=== PATIENT | male | born 1950 | race Hispanic/Latino ===

== ENCOUNTER 2020-03-17 00:30 | Inpatient (IN) | payer OTHER ==
--- OUTSIDE RECORDS SUMMARY | 2020-03-17 00:44 | XMS REPORT ---
:[address] [facility] t Address [address] [place] [address] Dr. Robin [address] [place] [id number] Care Team Providers Name Role Phone Unavailable Unavailable Unavailable Problems This patient has no known problems. Allergies, Adverse Reactions, Alerts This patient has no known allergies or adverse reactions. Medications This patient has no known medications.
[2020-03-17 01:55] VITALS: BMI 23.7
[2020-03-17] MEDS ORDERED: ONDANSETRON 4 MG/2 ML VIAL IV PRN (02:17)
[2020-03-17] MEDS ORDERED: CEFOXITIN SODIUM 1 GM/VIAL IVPB ONE (02:17)
[2020-03-17] MEDS ORDERED: CEFOXITIN SODIUM 1 GM/VIAL ONE (02:53)
[2020-03-17] MEDS ORDERED: NA CHLORIDE 0.9% 50 ML ONE (03:05)
[2020-03-17] MEDS: NA CHLORIDE 0.9% 1,000 ML IV SCH ×2 (04:51→16:16)
[2020-03-17] MEDS: MORPHINE 2 MG/ML SYR IV PRN ×2 (04:54→06:55)
[2020-03-17] MEDS ORDERED: D50W 25 GM/50 ML SYRINGE/VIAL IV PRN (07:33)
[2020-03-17] MEDS ORDERED: GLUCAGON 1 MG/VIAL IM PRN (07:33)
[2020-03-17] MEDS: INSULIN -REGULAR HUMAN 50 UNIT/0.5 ML ML SQ SCH ×3 (08:00→18:00)
[2020-03-17 08:16] LABS: Absolute Lymphocytes (CBC) 1.3 K/uL (0.7-4.9); Basophils % 0.5 % (0-1.3); Hematocrit 39.7 % (39.6-49.0); Lymphocytes % 16.5 % (15.3-44.8); MPV 8.2 fL (7.6-11.3); RBC Red Blood Cell Count 4.65 M/uL (4.33-5.43)
[2020-03-17 08:27] LABS: Albumin 3.9 g/dL (3.4-5.0); Bilirubin Total 0.8 mg/dL (0.2-1.0); Magnesium 2.5 mg/dL (1.8-2.4); Potassium 4.1 mmol/L (3.5-5.1); Protein, Total 7.7 g/dL (6.4-8.2)
[2020-03-17] MEDS ORDERED: PNEUMOCOCCAL VACCINE 0.5 ML IMVAC ONE (09:00)
--- NOTE | 2020-03-17 14:05 | RAD REPORT ---
EXAM DESCRIPTION: RAD - Abdomen W Erect - 03/17/2020 1:55 pm CLINICAL HISTORY: Abdomen pain. FINDINGS: Several loops of small bowel are mildly to moderately dilated. The air within the colon is diminished. This likely indicates a small bowel obstruction. Free air is not seen beneath the diaphragm
[2020-03-17] MEDS ORDERED: ENOXAPARIN 40 MG/0.4 ML SQ ONE (18:56)
[2020-03-17] MEDS ORDERED: PANTOPRAZOLE 40 MG INJ IVP ONE (18:58)
[2020-03-17] MEDS ORDERED: SODIUM CHLORIDE 0.9% 10ML INJ IV PRN (18:58)
[2020-03-17] MEDS: METOPROLOL TAR 25 MG TAB PO SCH (21:13)
--- NOTE | 2020-03-18 01:46 | HP ---
Date of Admission: 03/17/2020 History Of Present Illness: This is the case of a 69-year-old patient, comes to us actually to [facility] last overnight with a small bowel obstruction. We are in national emergency. They did no t have any surgeons available or anyway we had to take care of him so they asked for transfer, they c alled me. We accepted transfer to this institution. He came this morning. He denies any trauma. D enies eating anything out of the usual. He eats lot of salad. He had a colonoscopy done about a yea r ago and he say it was negative. He just developed this a distention of the abdomen and abdominal p ain and came to the ER. He denies any dysuria, hematuria, hematochezia, or melena. Denies any recen t traveling out of the country. Denies any family member sick at home. Denies any shortness of jonathan th. Allergies: NONE. Past Medical History: Hypertension, diabetes, pancreatitis non-insulin dependent diabetes. Past Surgical History: Cholecystectomy. Medications: Include Crestor and glyburide. Social History: He does not smoke. He does not drink alcohol. Family History: Noncontributory. Review of Systems: Ten points otherwise unremarkable. Physical Examination: General: Patient is awake and alert. HEENT: Pupils are equal and reactive, anicteric. Neck: Supple. Chest: Clear. Abdomen: Softly distended. No rebound. Mild generalized tenderness. Rectal and genitalia: Deferred. Extremities: Good capillary refill. Neurologic: Cranial nerves 2 through 12 grossly within normal limits. Laboratory Data: Blood work shows WBC count 7.7 with hemoglobin of 13.3, platelets of 284. Potassiu m is 4.1, creatinine is 0.9. We have a CAT scan done at [facility]. It was read by the [facility] doctors w ith small bowel obstruction. We do not have it in this institution. We did an x-ray once again, and the x-ray still showing small bowel obstruction. Assessment: A 69-year-old patient with small bowel obstruction, of unknown etiology. Patient will c ontinue n.p.o., ambulation. Dr. Swift was consulted on the case, this is the primary doctor to help u s with diabetes and hypertension control. We are going to order a small bowel series tomorrow. Cont inue bowel rest. RICARDA/PATRICK Voice ID: [id number]
[2020-03-18] MEDS: NA CHLORIDE 0.9% 1,000 ML IV SCH (04:00)
[2020-03-18] MEDS: INSULIN -REGULAR HUMAN 50 UNIT/0.5 ML ML SQ SCH ×4 (06:00→18:00)
--- NOTE | 2020-03-18 07:07 | CON ---
Date of Consultation: 03/17/2020 Reason For Consultation: Medical management. History Of Present Illness: This is a 69-year-old very pleasant male patient who sees me for his med ical management, was doing fine in his usual state of health until yesterday morning he started to kirk ve some upper abdominal pain associated with some nausea, vomiting. He denies any constipation or di arrhea. He felt like having some chills with these complaints. His last bowel movement was at 8:00 p.m. yesterday. His abdominal pain got worse yesterday, progressed, and had some associated bloating and he was belching a lot of gas. He did not report any abdominal distention. Late yesterday eveni ng or during nighttime, he went to [facility] with this worsening abdominal pain where he was evaluated, diagnosed as having small-bowel obstruction, and he was transferred to our [facility] under care of Dr. Brantley, general surgeon, and I was requested to provide medical consultati on for medical management. He denies any blood in stool, denies any hematemesis. Allergies: NO KNOWN ALLERGIES. Medications: List reviewed. Review of Systems: GI: As mentioned above. Constitutional: As mentioned above. All other systems reviewed and negative. Past Medical History: Significant for diabetes mellitus type 2 with neuropathy, hypertension, mixed hyperlipidemia, diverticulosis, benign prostatic hypertrophy, insomnia. Past Surgical History: Cataract surgery, cholecystectomy. Family History: Father of [place]. Mother , details unknown. Brother had stomach cancer and si ster with hypertension. Social History: Negative for smoking. Use of alcohol occasional. Physical Examination: Vital Signs: Temperature 97.7, pulse 81, respiratory rate 18, blood pressure 140/70, oxygen saturati on 97%. Height 5 feet 10 inches, weight 165 pounds. General: Awake, alert, oriented, not in distress. HEENT: Head atraumatic, normocephalic. Conjunctivae nonerythematous. Sclerae white. Mouth, no thr ush or edema noted. Ears/Nose, no mass, lesion, discharge noted. Neck: Supple. No JVD, lymph nodes, bruit, thyromegaly noted. Lungs: Bilateral good equal air entry. Clear to auscultation. No rhonchi. No rales. Heart: Normal heart sounds, no murmur or gallop. Abdomen: Soft, not distended. No guarding, rigidity. No rebound tenderness. No hepatosplenomegaly. No bruit. Bowel sounds normoactive. Patient has very mild tenderness in mid upper abdomen. Extremities: No leg edema. No calf tenderness. Skin: No rash, ulcer, cellulitis. Lymphatics: No lymph node enlargement in neck, supraclavicular, infraclavicular region. Neuro: No focal neurological deficit. Chest: Unremarkable. External Genitalia: Deferred. Rectal: Deferred. Laboratory Data: Procalcitonin less than 0.05. Lactic acid 0.9. Sodium 138, potassium 4.1, chlorid e 105, bicarb 25, BUN 14, creatinine 0.91, glucose 133. Liver function tests unremarkable. White co unt 7.7, hemoglobin 13.3, platelets 284. Impression: 1.Type 2 diabetes mellitus with diabetic neuropathy. 2.Mixed hyperlipidemia. 3.Hypertension. 4.Diverticulosis. 5.Benign prostatic hypertrophy. 6.Insomnia. 7.Small-bowel obstruction. Plan: Patient was admitted to the hospital with small-bowel obstruction and medically he is very sta ble at this point. His home medication list reviewed. We will continue his essential medication at this point. For diabetes, we will be manage it with sliding scale insulin and to continue the oral d iabetic medication at this point while he is n.p.o. IV fluid and antibiotic order is in place. DVT prophylaxis was ordered. Details and plan of treatment discussed with the patient and I will see him tomorrow for followup. Thank you very much for allowing me to participate in this patient's care. OSWALDO/MODL Voice ID: [id number] Report ID: [id number]
[2020-03-18] MEDS: METOPROLOL TAR 25 MG TAB PO SCH ×2 (09:00→21:04)
[2020-03-18] MEDS: D5 0.9 NS 1,000 ML IV SCH ×2 (11:18→21:20)
[2020-03-18] MEDS: PANTOPRAZOLE 40 MG INJ IVP SCH (11:18)
--- NOTE | 2020-03-18 11:26 | RAD REPORT ---
EXAM DESCRIPTION: RAD - Small Bowel Series - 03/18/2020 11:01 am CLINICAL HISTORY: SBO Abdominal pain COMPARISON: Abdomen Exam Complete dated 01/01/2018; Abdomen W Erect dated 03/17/2020 FINDINGS: Biomechanical Engineer film shows a nonspecific bowel gas pattern. No obstruction or free air. No suspiciou s calcifications. Cholecystectomy clips. Gastric size and mucosal fold pattern are normal. No delay in transit of contrast into the small vu l. Small bowel is normal in diameter with no mucosal fold thickening. No intrinsic or extrinsic mass identifiable. Terminal ileum has normal appearance. Transit time to the colon is normal. No fluoroscopy was performed. Total images acquired: 15 IMPRESSION: No evidence of mechanical small-bowel obstruction seen.
--- NOTE | 2020-03-18 16:47 | P.DS ---
Admission Date: 03/17/20 Discharge Date: 03/18/20 Disposition: ROUTINE DISCHARGE Discharge Condition: GOOD Hospital Course: unremarkable, passinf flatus and BM Vital Signs/Physical Exam: Temp Pulse Resp BP Pulse Ox 97.3 F 56 16 132/68 98 03/18/20 12:00 03/18/20 12:00 03/18/20 12:00 03/18/20 12:00 03/18/20 12:00 General: Alert, In no apparent distress, Oriented x3, Cooperative HEENT: Normocephalic, PERRLA Neck: Supple Respiratory: Normal air movement Cardiovascular: No edema, Normal pulses Gastrointestinal: Normal bowel sounds, Soft and benign, No tenderness, No rebound, No guarding Musculoskeletal: No erythema, No tenderness, No warmth Integumentary: No rashes, No breakdown Neurological: Normal speech, Normal strength at 5/5 x4 extr, Normal tone Lymphatics: No axilla or inguinal lymphadenopathy External genitalia: Deferred Rectal: Deferred Laboratory Data at Discharge: WBC 7.7 K/uL (4.3-10.9) 03/17/20 07:54 Hgb 13.3 g/dL (13.6-17.9) L 03/17/20 07:54 Hct 39.7 % (39.6-49.0) 03/17/20 07:54 Plt Count 284 K/uL (152-406) 03/17/20 07:54 Sodium 138 mmol/L (136-145) 03/17/20 07:54 Potassium 4.1 mmol/L (3.5-5.1) 03/17/20 07:54 BUN 14 mg/dL (7-18) 03/17/20 07:54 Creatinine 0.91 mg/dL (0.55-1.3) 03/17/20 07:54 Glucose 133 mg/dL (74-106) H 03/17/20 07:54 Magnesium 2.5 mg/dL (1.8-2.4) H 03/17/20 07:54 Total Bilirubin 0.8 mg/dL (0.2-1.0) 03/17/20 07:54 AST 17 U/L (15-37) 03/17/20 07:54 ALT 25 U/L (12-78) 03/17/20 07:54 Alkaline Phosphatase 72 U/L (45-117) 03/17/20 07:54 Imagings Data: SBS neg Home Medications: Aspirin Chewable [Aspirin Chewable*] 81 mg PO BEDTIME 03/17/20 Cyanocobalamin [Vitamin B-12] 1,000 mcg PO DAILY 03/17/20 Empagliflozin/Metformin HCl [Synjardy Xr 25-1,000 mg Tablet] 1 each PO DAILY 03/17/20 Losartan Potassium [Cozaar] 50 mg PO BID 03/17/20 Metoprolol Tartrate [Lopressor] 25 mg PO BID 03/17/20 Pantoprazole [Protonix Tab] 40 mg PO Q48H 03/17/20 Rosuvastatin [Crestor] 10 mg PO BEDTIME 03/17/20 Sitagliptin Phosphate [Januvia] 100 mg PO BEDTIME 03/17/20 Patient Discharge Instructions: soft diet. Discharge if he tolerated diet. Diet: ADA Followup: Alan Brantley MD [ACTIVE - CAN ADMIT] - 1 Week
[2020-03-18] MEDS ORDERED: ENOXAPARIN 40 MG/0.4 ML SQ SCH (17:00)
[2020-03-18 21:43] VITALS: O2SAT 99
[2020-03-19] MEDS: INSULIN -REGULAR HUMAN 50 UNIT/0.5 ML ML SQ SCH
[2020-03-19 01:17] VITALS: BP 138/77; TEMP 98
--- NOTE | 2020-03-19 02:52 | PN ---
Date of Progress Note: 03/18/2020 Subjective: The patient was seen this morning for followup. He was ambulating in the room when I sa w him. Denied any complaints. Abdominal pain has resolved. No nausea or vomiting. Had 1 bowel mov ement yesterday. Objective: Vital Signs: Reviewed. HEENT: Unremarkable. Lungs: Clear to auscultation. Heart: Sounds normal. Abdomen: Soft. Bowel sounds normal. No guarding, rigidity, tenderness, or distention. Extremities: No leg edema. Impression: 1.Diabetes mellitus. 2.Hypertension. 3.Small-bowel obstruction. Plan: The patient's fingerstick blood sugar readings and vital signs reviewed. We will continue cur rent IV fluid. Dr. Brantley has ordered small-bowel series and then he will decide further plan of t reatment depending on the test results. Medically, patient is stable. OSWALDO/MODL Voice ID: [id number] Report ID: [id number]
[2020-03-19] MEDS: D5 0.9 NS 1,000 ML IV SCH (04:14)
[2020-03-19] MEDS ORDERED: GLUCAGON 1 MG/VIAL IM PRN (05:06)
[2020-03-19] MEDS ORDERED: D50W 25 GM/50 ML SYRINGE/VIAL IV PRN (05:06)
[2020-03-19] MEDS ORDERED: INSULIN -REGULAR HUMAN 50 UNIT/0.5 ML ML SQ SCH (07:30)
[2020-03-19] MEDS: METOPROLOL TAR 25 MG TAB PO SCH (10:15)
[2020-03-19] MEDS: PANTOPRAZOLE 40 MG INJ IVP SCH (10:15)
--- NOTE | 2020-03-19 14:07 | PN ---
Date of Progress Note: 03/19/2020 Subjective: The patient was seen this morning for followup. Dr. Brantley had discharged him yesterd ay, but after he wrote the discharge order, patient did not feel comfortable after evening meal as he had some bloating type of sensation. He did not go home last night. This morning when I saw him, nitin lan did not have any abdominal pain. He had a bowel movement early this morning as well as last night as he reports. No nausea, no vomiting. Has some bloating with burping of gas, but no abdominal dist ention or abdominal pain. He tolerated diet very well this morning. Objective: Vital Signs: Reviewed. HEENT: Examination unremarkable. Lungs: Clear to auscultation. Cardiovascular: Heart sounds normal. Abdomen: Soft. Bowel sounds normal. No guarding, rigidity, t enderness, distention. Extremities: No leg edema. Impression: 1.Hypertension. 2.Diabetes mellitus. 3.Small bowel obstruction. Plan: Patient is medically stable and he will be going home today. He will follow up with Dr. Tracie almazan next week and he was instructed that if he has any worsening of symptoms, he should contact Dr. Diane alvarenga. Otherwise, he will follow up with him next week. I have advised him to eat a low-fiber t until he sees Dr. Brantley and then he can slowly advance his diet. OSWALDO/MODL Voice ID: [id number] Report ID: [id number]
== END 2020-03-19 11:28 | disposition home or self-care (01) | DRG 390 ==
LOC: 2ND 00:30
PROVIDERS: ADMIT Surgery; ATTEND Surgery
DX: K56.609 Unspecified intestinal obstruction, unspecified as to partial versus complete obstruction (principal); G47.00 Insomnia, unspecified; I10 Essential (primary) hypertension; E11.40 Type 2 diabetes mellitus with diabetic neuropathy, unspecified; E78.2 Mixed hyperlipidemia; K57.90 Diverticulosis of intestine, part unspecified, without perforation or abscess without bleeding; N40.0 Benign prostatic hyperplasia without lower urinary tract symptoms; Z79.82 Long term (current) use of aspirin; Z79.84 Long term (current) use of oral hypoglycemic drugs; Z90.49 Acquired absence of other specified parts of digestive tract; Z79.899 Other long term (current) drug therapy
CPT/HCPCS: 36415; 74019; 74250; 80053; 82947; 83605; 83735; 84145; 85025; C9113; J0694; J1650; J2270; J7030; J7042

== ENCOUNTER 2020-10-26 08:08 | Day surgery (SDC) | payer OTHER ==
[2020-10-25 13:33] LABS: Absolute Lymphocytes (CBC) 1.1 K/uL (0.7-4.9); Basophils % 0.6 % (0-1.3); Hematocrit 24.8 % (39.6-49.0); Lymphocytes % 25.7 % (15.3-44.8); MPV 8.2 fL (7.6-11.3); RBC Red Blood Cell Count 3.27 M/uL (4.33-5.43)
[2020-10-25 13:45] LABS: Ferritin 2.6 ng/mL (26-388)
--- OUTSIDE RECORDS SUMMARY | 2020-10-26 08:18 | XMS REPORT | Continuity of Care Document ---
:1950 Author Organization [facility] t Address [address] [place] [address] Dr. Robin [address] [place] [id number] Care Team Providers Name Role Phone Unavailable Unavailable Unavailable Problems This patient has no known problems. Allergies, Adverse Reactions, Alerts This patient has no known allergies or adverse reactions. Medications This patient has no known medications. Procedures This patient has no known procedures. Results This patient has no known results.
[2020-10-26] MEDS ORDERED: ACETAMINOPHEN 500 MG TAB ONE (08:36)
[2020-10-26] MEDS ORDERED: NA CHLORIDE 0.9% 250 ML ONE ×2 (08:37→11:21)
[2020-10-26] MEDS ORDERED: DIPHENHYDRAMINE 25 MG TAB/CAP ONE (08:37)
[2020-10-26 10:25] VITALS: BMI 23.9
[2020-10-26 16:17] VITALS: BP 138/64; TEMP 97.9; O2SAT 100
[2020-10-26 16:43] LABS: Hematocrit 27.6 % (39.6-49.0)
== END 2020-10-26 17:25 | disposition home or self-care (01) ==
LOC: DS 08:08
PROVIDERS: ATTEND Internal Medicine
DX: D50.0 Iron deficiency anemia secondary to blood loss (chronic) (principal)
CPT/HCPCS: 85025; 36415 ×2; 86900; 86850; 86901; 85018; 85014; 82728; 83540; 84466; 36430; P9016 ×2; J7050 ×2

== ENCOUNTER 2021-03-21 18:18 | Inpatient (IN) | payer OTHER ==
--- OUTSIDE RECORDS SUMMARY | 2021-03-21 18:21 | XMS REPORT | Continuity of Care Document ---
:1950 Author Organization [facility] t Address [address] [place] [address] Dr. Robin [address] [place] [address] Care Team Providers Name Role Phone Unavailable Unavailable Unavailable Problems This patient has no known problems. Allergies, Adverse Reactions, Alerts This patient has no known allergies or adverse reactions. Medications This patient has no known medications. Procedures This patient has no known procedures. Results This patient has no known results.
[2021-03-21] MEDS ORDERED: GLUCAGON 1 MG/VIAL IM PRN (21:46)
[2021-03-21] MEDS ORDERED: D50W 25 GM/50 ML SYRINGE IV PRN (21:46)
[2021-03-21] MEDS ORDERED: MORPHINE 2 MG/ML SYR IV PRN (21:48)
[2021-03-21] MEDS ORDERED: ONDANSETRON 4 MG/2 ML VIAL IV PRN (21:48)
[2021-03-21] MEDS ORDERED: D5 0.9 NS 1,000 ML IV SCH (22:00)
--- NOTE | 2021-03-21 22:09 | ER ---
Nurse's Notes [facility] Name: Alonso Stover Age: 70 yrs Sex: Male : 1950 Arrival Date: 03/21/2021 Time: 18:21 Bed External Waiting Private MD: Morris Swift C Diagnosis: Unspecified abdominal pain Presentation: 03/21 18:40 Chief complaint: Patient states: Upper abd pain started last night. Direct admit Dr. alex Swift. + nausea, no fever. Coronavirus screen: Client denies travel out of the [place] in the last 14 days. At this time, the client does not indicate any symptoms associated with coronavirus-19. Ebola Screen: Patient denies travel to an Ebola-affected area in the 21 days before illness onset. Initial Sepsis Screen: Does the patient meet any 2 criteria? HR > 90 bpm. No. Patient's initial sepsis screen is negative. Does the patient have a suspected source of infection? Yes: Acute abdominal pain. Risk Assessment: Do you want to hurt yourself or someone else? Patient reports no desire to harm self or others. Onset of symptoms was March 20, 2021. 18:40 Method Of Arrival: Ambulatory ll1 18:40 Acuity: KAVEH 3 ll1 Historical: - Allergies: 18:43 No Known Allergies; ll1 - PMHx: 18:43 Pancreatitis; blockage; Diabetes - NIDDM; Hypertension; High Cholesterol; ll1 - PSHx: 18:43 Cholecystectomy; ll1 - Immunization history:: Flu vaccine is up to date. - Social history:: Smoking status: Patient denies any tobacco usage or history of. Vital Signs: 18:40 BP 157 / 93; Pulse 92; Resp 17; Temp 97.6; Pulse Ox 99% ; Weight 75.3 kg; Height 5 ft. ll1 10 in. (177.80 cm); Pain 6/10; 18:40 Body Mass Index 23.82 (75.30 kg, 177.80 cm) ll1 ED Course: 18:21 Patient arrived in ED. am2 18:21 Morris Swift MD is Private Physician. am2 18:42 Triage completed. ll1 18:43 Arm band placed on. ll1 22:06 Morris Swift MD is Hospitalizing Provider. iw Administered Medications: No medications were administered Outcome: 22:09 Decision to Hospitalize by Provider. iw 22: Patient left the ED. iw Signatures: Susy Ruiz, RN RN Nikki Delarosa Lynsay RN RN ll1
[2021-03-21 22:16] VITALS: O2SAT 99
[2021-03-21 22:52] LABS: Absolute Lymphocytes (CBC) 0.6 K/uL (0.7-4.9); Basophils % 0.2 % (0-1.3); Hematocrit 38.7 % (39.6-49.0); Lymphocytes % 5.5 % (15.3-44.8); MPV 8.1 fL (7.6-11.3); RBC Red Blood Cell Count 4.23 M/uL (4.33-5.43)
[2021-03-21 23:01] LABS: Albumin 4.2 g/dL (3.4-5.0); Magnesium 2.5 mg/dL (1.8-2.4); Potassium 4.5 mmol/L (3.5-5.1); Protein, Total 7.9 g/dL (6.4-8.2)
[2021-03-21] MEDS: FAMOTIDINE 20 MG/2 ML VIAL IV SCH (23:41)
[2021-03-21] MEDS: CIPROFLOXACIN 400mg IV 400 MG/200 ML BAG IV SCH (23:42)
[2021-03-22 00:02] VITALS: BMI 23.3
[2021-03-22 00:53] LABS: Blood Morphology Comment NOT SEEN (NOT SEEN); Platelet Estimate ADEQ
[2021-03-22] MEDS: METRONIDAZOLE 500mg IVPB 500 MG/100 ML BAG IV SCH ×2 (01:29→09:00)
[2021-03-22] MEDS: INSULIN -REGULAR HUMAN 50 UNIT/0.5 ML ML SQ SCH ×3 (07:30→11:30)
[2021-03-22] MEDS ORDERED: FAMOTIDINE 20 MG/2 ML VIAL IV SCH (09:00)
[2021-03-22] MEDS ORDERED: ENOXAPARIN 40 MG/0.4 ML SQ SCH (09:00)
[2021-03-22] MEDS: FAMOTIDINE 20 MG/2 ML VIAL IV SCH (09:32)
[2021-03-22] MEDS: CIPROFLOXACIN 400mg IV 400 MG/200 ML BAG IV SCH (09:35)
--- NOTE | 2021-03-22 10:41 | HP ---
Date of Admission: 03/21/2021 Chief Complaint: Abdominal pain, nausea. History Of Present Illness: This is a 70-year-old pleasant male patient, who came to office today wi th his complaining of abdominal pain, nausea, bloating and belching. All of his symptoms starte d yesterday evening after he ate some food at [employer] in [place]. No other family membe r got sick with similar illness. Denies any constipation, diarrhea. No fever. No chills. He came into office today and after he was evaluated, decision was made to admit him to hospital for further evaluation and management of this problem. Allergies: TO DOXAZOSIN CAUSING PALPITATION AND DIZZINESS. Medications: Aspirin 81 mg daily, felodipine 5 mg daily in the morning, ferrous fumarate 324 mg 2 ti mes a day, Claritin 10 mg daily, losartan 50 mg 2 times a day, metformin 500 mg daily, pantoprazole 4 0 mg daily, rosuvastatin 10 mg daily, vitamin B12 1 mg daily. Review of Systems: GI: As mentioned above. All other systems reviewed and negative. Past Medical History: Diabetes mellitus type 2 with diabetic neuropathy, hypertension, hyperlipidemi a which is mixed, benign prostatic hypertrophy, diverticulosis, anemia due to iron deficiency due to GI blood loss, insomnia, and the patient received 2 units of PRBC blood transfusion in October 26. Past Surgical History: Significant for cataract surgery and cholecystectomy. Social History: Negative for smoking. Use of alcohol occasional. Family History: Father , had myocardial infarction and brother had stomach cancer. Sister with hypertension. Physical Examination: Vital Signs: Blood pressure was 130/76, pulse rate was 82, temperature 97.3, respiratory rate 15, we ight 166.8 pounds, height 69 inches. General: Awake, alert, oriented, not in distress. HEENT: Head atraumatic, normocephalic. Conjunctivae nonerythematous. Sclerae white. Mouth, no thr ush or edema noted. Ears/Nose, no mass, lesion, discharge noted. Neck: Supple. No JVD, lymph nodes, bruit, thyromegaly noted. Lungs: Bilateral good equal air entry. Clear to auscultation. No rhonchi. No rales. Heart: Normal heart sounds, no murmur or gallop. Abdomen: Soft. No guarding. No rigidity. No rebound tenderness, but he does have presence of tend erness in upper abdomen and tenderness is mild. Bowel sounds present. No hepatosplenomegaly. No br uit. Extremities: No leg edema. No calf tenderness. Skin: No rash, ulcer, cellulitis. Lymphatics: No lymph node enlargement in neck, supraclavicular, infraclavicular region. Neuro: No focal neurological deficit. Chest: Unremarkable. External Genitalia: Deferred. Rectal: Deferred. Laboratory Data: Chest x-ray; no acute cardiopulmonary changes. Abdominal x-ray; dilated loop of deven wel with some air in colon and this could be due to ileus or partial small bowel obstruction. CAT sc an of abdomen and pelvis without contrast done, result pending. White count 10.4, hemoglobin 13.5, p latelets 274. Sodium 137, potassium 4.5, chloride 103, bicarb 27, BUN 21, creatinine 0.93, glucose 1 92. Liver function test unremarkable. Procalcitonin less than 0.05. COVID-19 test negative. Impression: 1.Abdominal pain. 2.Rule out bowel obstruction. 3.Type 2 diabetes mellitus with diabetic neuropathy. 4.Hypertension. 5.Mixed hyperlipidemia. 6.Diverticulosis. 7.Iron deficiency anemia due to chronic gastrointestinal blood loss. 8.Insomnia. Plan: We will admit the patient to hospital for further evaluation and management of this problem. The patient is appropriate for inpatient and is expected to spend 2 midnights in hospital. Home medi cations will be continued per order. We will keep him n.p.o., IV fluid, IV antibiotic which is Cipro and metronidazole, consult Dr. Brantley, and give him pain and nausea medications as needed. Detail s and plan of treatment discussed with the patient and the patient's . DVT prophylaxis will be g marcelina using Lovenox. OSWALDO/MODL Voice ID: [id number]
[2021-03-22 12:03] VITALS: BP 119/67; TEMP 97.5
--- NOTE | 2021-03-22 12:46 | RAD REPORT ---
EXAM DESCRIPTION: RAD - Chest Pa And Lat (2 Views) - 03/21/2021 10:03 pm CLINICAL HISTORY: Abd pain COMPARISON: None. FINDINGS: Frontal and lateral radiographic views of the chest. Cardiomediastinal silhouette: Atherosclerotic calcification of the thoracic aorta. Heart is not enlar ged. Lungs: No consolidation, pneumothorax, or pleural effusion. Mild eventration of the right hemidiaphra gm. Bones: Mild endplate spondylosis. Upper abdomen: No abnormality identified. IMPRESSION: 1. No acute pulmonary process identified. Electronically signed by: Chad Cadet 03/21/2021 10:21 PM CDT Due to temporary technical issues with the PACS/Fluency reporting system, reports are being signed by the in house radiologists without review as a courtesy to insure prompt reporting. The interpreting radiologist is fully responsible for the content of the report.
--- NOTE | 2021-03-22 13:01 | RAD REPORT ---
EXAM DESCRIPTION: RAD - Abdomen 1 View (KUB) - 03/21/2021 10:05 pm CLINICAL HISTORY: Abd pain COMPARISON: None. FINDINGS: Bowel: Mildly prominent loops of small bowel in the midabdomen with air identified in the colon. Moderate amount of stool. Peritoneum: No free intraperitoneal air identified. Solid organs: No definite organomegaly. Calcifications: No abnormal calcifications. Bones: Degenerative endplate spondylosis. Other: Visualized lung bases are clear. IMPRESSION: 1. Mildly prominent loops of small bowel with air identified in the colon. These finding s could be seen with ileus or partial small bowel obstruction. CT could provide additional characteri zation. Electronically signed by: Chad Cadet 03/21/2021 10:21 PM CDT Due to temporary technical issues with the PACS/Fluency reporting system, reports are being signed by the in house radiologists without review as a courtesy to insure prompt reporting. The interpreting radiologist is fully responsible for the content of the report.
--- NOTE | 2021-03-22 13:11 | RAD REPORT ---
EXAM DESCRIPTION: CT - Abdomen Pelvis Wo Contrast - 03/22/2021 6:37 am CLINICAL HISTORY: Abd pain, nausea, vomiting COMPARISON: None Available. TECHNIQUE: CT of the abdomen and pelvis without IV contrast. Oral contrast administered Evaluation o f the solid organs and vasculature is suboptimal due to lack of IV contrast. This exam was performed according to our departmental dose-optimization program, which includes automated exposure control, a djustment of the mA and/or kV according to patient size and/or use of iterative reconstruction techni que. FINDINGS: Lung Bases: The visualized lung bases are clear. Bones: Degenerative endplate spondylosis visualized spine. Abdomen: Liver: The liver has normal size and density. Gallbladder: Prior cholecystectomy. Spleen, Pancreas, and Adrenal Glands: The spleen, pancreas, and left adrenal gland are unremarkable . 1.1 cm lipid rich right adrenal adenoma. Kidneys: The kidneys have normal size without evidence of hydronephrosis. No obstructing ureteral claudia culi. With a nonobstructing right nephrolithiasis. 2.8 cm right renal cyst. Vasculature: Aortoiliac atherosclerosis. IVC is unremarkable. Stomach: The stomach and duodenum have normal course. Other: No free intraperitoneal air. No free fluid or lymphadenopathy. Pelvis: Bladder: Urinary bladder is unremarkable. Bowel: Mildly prominent loops of small bowel without distal decompression. Fluid-filled colon. Scat tered diverticula of the colon. Appendix: Normal appendix. Pelvis: Enlarged prostate. IMPRESSION: 1. Mildly prominent loops of small bowel without distal decompression. Fluid-filled co aj These findings could be seen with nonspecific enterocolitis/diarrheal illness. 2. Diverticulosis without evidence of acute diverticulitis. 3. Enlarged prostate. 4. Punctate nonobstructing right nephrolithiasis. 5. 1.1 cm lipid rich right adrenal adenoma. No follow-up imaging recommended. Electronically signed by: Chad Cadet 03/22/2021 1:33 AM CDT Due to temporary technical issues with the PACS/Fluency reporting system, reports are being signed by the in house radiologists without review as a courtesy to insure prompt reporting. The interpreting radiologist is fully responsible for the content of the report.
--- NOTE | 2021-03-22 22:08 | DS ---
Date of Discharge: 03/22/2021 Subjective: The patient was seen this morning for followup. No new complaints or problems reported by the patient. Lying in bed, not in distress. Denies any abdominal pain. No nausea. No vomiting. Objective: Vital Signs: Reviewed. HEENT: Unremarkable. Lungs: Clear to auscultation. Heart: Sounds normal. Abdomen: Soft. Bowel sounds normal. No guarding, rigidity, tenderness, or distention. Extremities: No leg edema. Hospital Course: A 70-year-old male patient came into office yesterday and was [facility] with complaints of abdominal pain, bloating, some abdominal distention, nausea, vomiting that sta rted after he ate some food at [facility]. No other family member got sick with any such complaints. After the patient was evaluated at office, he was admitted to the hospital. His blood work was unrem arkable. Lipase was normal. Abdominal x-ray showed dilated loop of bowel raising possibility of sma ll bowel obstruction. CAT scan of the abdomen was done as well. After the patient came into the [facility], he had episode of nausea and vomiting again, and subsequently he started to have diarrhea type of multiple bowel movements overnight and the patient says that with that, his abdominal complaints completely subsided, his abdominal distention subsided, no more bloating, no more abdominal pain, and this morning when I saw him, he was feeling better, back to his normal self. Dr. Brantley was consu lted from General Surgery and ge did not suggest any further intervention. The patient was diet, whi ch he tolerated very well, and he was medically stable for discharge and Dr. Brantley also released h im to go home from surgical point of view. Final Diagnoses: 1.Small bowel obstruction, partial, resolved. 2.Hypertension. 3.Type 2 diabetes mellitus. 4.Mixed hyperlipidemia. 5.Diverticulosis. 6.Benign prostatic hypertrophy. 7.Insomnia. Discharge Medications And Instructions: 1.Continue all prior home medications. 2.Follow up at my office next week. 3.Eat low-fiber diet and nursing staff was requested to give such diet instruction to the patient. OSWALDO/MODL Voice ID: [id number] Report ID: [id number]
== END 2021-03-22 15:40 | disposition home or self-care (01) | DRG 390 ==
LOC: ER 18:18 → 4TH 20:56
PROVIDERS: ADMIT Internal Medicine; ATTEND Internal Medicine
DX: K56.600 Partial intestinal obstruction, unspecified as to cause (principal); E11.40 Type 2 diabetes mellitus with diabetic neuropathy, unspecified; E78.2 Mixed hyperlipidemia; D50.9 Iron deficiency anemia, unspecified; K57.90 Diverticulosis of intestine, part unspecified, without perforation or abscess without bleeding; N40.0 Benign prostatic hyperplasia without lower urinary tract symptoms; G47.00 Insomnia, unspecified; I10 Essential (primary) hypertension; Z90.49 Acquired absence of other specified parts of digestive tract; Z88.8 Allergy status to other drugs, medicaments and biological substances; Z79.82 Long term (current) use of aspirin; Z79.84 Long term (current) use of oral hypoglycemic drugs; Z79.899 Other long term (current) drug therapy; Z20.822 Contact with and (suspected) exposure to COVID-19
CPT/HCPCS: 36415; 71046; 74018; 74176; 80053; 82947; 83690; 83735; 84100; 84145; 85025; 99281; J0744; J1650; J7042; U0003

== ENCOUNTER 2024-01-08 17:24 | Inpatient (IN) | payer OTHER ==
--- OUTSIDE RECORDS SUMMARY | 2024-01-08 17:28 | XMS REPORT | Continuity of Care Document ---
Author Name Unknown Address [address] [place] [address] [employer] Address [address] [place] [address] Care Team Providers Care Wire Stitcher Operator Name Role Phone Unavailable Unavailable Unavailable
[2024-01-08 18:12] VITALS: BMI 24.5
[2024-01-08] MEDS ORDERED: D50W 25 GM/50 ML SYRINGE IV PRN (19:06)
[2024-01-08] MEDS ORDERED: GLUCAGON 1 MG/VIAL IM PRN (19:06)
[2024-01-08 19:29] LABS: Hematocrit 20.3 % (39.6-49.0)
[2024-01-08] MEDS: INSULIN REGULAR (HUMAN) 100 UNIT/ML SQ SCH (20:42)
[2024-01-08 20:48] LABS: Specific Gravity 1.011 (1.005-1.030); Urine Bilirubin NEGATIVE (Negative); Urine Blood Negative (Negative); Urine Clarity Clear (Clear); Urine Color Light-Yellow (Yellow); Urine Glucose 1+ (Negative); Urine Protein NEGATIVE (Negative); Urine Urobilinogen Normal (Normal)
[2024-01-08] MEDS: NA CHLORIDE 0.9% 500 ML ONE (21:35)
--- NOTE | 2024-01-09 06:27 | HP ---
Date of Admission: 01/08/2024 Chief Complaint: Feeling weak, tired, short of breath. History Of Present Illness: This is a -mklw-owv male patient who has history of anemia, an d he required 2 units of PRBC blood transfusion in October 2020 and had a GI workup done by Dr. Gale fleming, including last EGD and colonoscopy done August 2022. The patient takes his iron supplement as s uggested. In last 1 week, he started to have feeling of getting lightheaded when he tries to get up or getting short of breath and that is with minimal daily activity, and also feeling very weak and ti red. Since he has been on iron supplement, his stool is dark in color, that has not changed, but den ies any blood in stool. With all these complaints, he had blood work done yesterday and result came back today showing hemoglobin of 6.8. With that, the patient was contacted and was requested to come to office. After he was evaluated, details were communicated with him and his who was with him , and decision was made to admit him to the hospital for further evaluation and management of this pr oblem. Allergies: TO DOXAZOSIN, CAUSING DIZZINESS AND PALPITATION. Medications: Aspirin 81 mg daily, duloxetine 20 mg daily, ferrous gluconate 1 tablet by mouth daily and that is 240 mg, fluticasone nasal spray 1 spray each nostril 2 times a day as needed, hydralazine 10 mg takes one tablet 2 times a day, Claritin 10 mg daily, losartan 50 mg 2 times a day, metformin 500 mg daily, pantoprazole 40 mg daily, rosuvastatin 10 mg daily, vitamin B12 1 mg daily. Review of Systems: Constitutional: As mentioned above. Respiratory: As mentioned above. All other systems reviewed and negative. Past Medical History: Significant for diabetes mellitus with peripheral neuropathy; hypertension; mi xed hyperlipidemia; diverticulosis; benign prostatic hypertrophy; anemia and October 26, 2020, he rec eived 2 units of PRBC blood transfusion; insomnia. His EGD from September 05, 2022 had shown hiatal he rnia, gastritis, and gastric polyp. Colonoscopy from September 05, 2022 had shown diverticulosis, poly p, and hemorrhoid. Past Surgical History: Significant for cataract surgery, cholecystectomy. Family History: Father , had MO. Mother , details unknown. Brother , had stomach cance r. Social History: Negative for smoking. Use of alcohol, occasional. Physical Examination: Vital Signs: Temperature 97.3, pulse 63, respiratory rate 16, blood pressure 109/52, oxygen saturati on 99%. Height 5 feet 10 inches, weight 171 pounds. General: Awake, alert, oriented, not in distress. HEENT: Head atraumatic, normocephalic. Conjunctivae nonerythematous. Sclerae white. Mouth, no thr ush or edema noted. Ears/Nose, no mass, lesion, discharge noted. Neck: Supple. No JVD, lymph nodes, bruit, thyromegaly noted. Lungs: Bilateral good equal air entry. Clear to auscultation. No rhonchi. No rales. Heart: Normal heart sounds, no murmur or gallop. Abdomen: Soft, bowel sounds normal. No guarding, rigidity, tenderness, mass, hepatosplenomegaly, dis tention, or bruit noted. Extremities: No leg edema. No calf tenderness. Skin: No rash, ulcer, cellulitis. Lymphatics: No lymph node enlargement in neck, supraclavicular, infraclavicular region. Neuro: No focal neurological deficit. Chest: Unremarkable. External Genitalia: Deferred. Rectal: Deferred. Laboratory Data: Outpatient labs from yesterday: Glucose 145, sodium 137, potassium 4.4, chloride 1 05, bicarb 23, BUN 24, creatinine 0.99. Liver function test unremarkable. TSH 2.3. WBC 4.9, hemogl obin 6.8, platelets 289. Impression: 1.Anemia. 2.Type 2 diabetes mellitus with diabetic neuropathy. 3.Hypertension. 4.Mixed hyperlipidemia. 5.Benign prostatic hypertrophy. 6.Allergic rhinitis. 7.Diverticulosis. 8.Insomnia. Plan: We will go ahead and admit the patient to hospital for further evaluation and management of th is problem. The patient is appropriate for inpatient and is expected to spend 2 midnights in the [facility]. Our plan is to transfuse 3 units of PRBC after admission and will get post transfusion hemogl obin and hematocrit. GI consultation will be requested and I have talked to Dr. García and discussed details with him. He is planning to do EGD on the patient tomorrow, so we will keep him n.p.o. afte r midnight. Diabetes will be managed with sliding scale insulin. For hypertension, we will not give any antihypertensive medication. Continue to monitor blood pressure. At appropriate time, we will consider to restart blood pressure medications. For cholesterol, continue his rosuvastatin per order . Details and plan of treatment discussed with the patient. I will see him tomorrow for followup. OSWALDO/MODL Voice ID: [id number]
[2024-01-09] MEDS ORDERED: LIDOCAINE 1% MPF 5 ML VIAL ONE (06:59)
[2024-01-09] MEDS ORDERED: Phenylephrine HCl 10 MG/ML 1 ML VIAL ONE (06:59)
[2024-01-09] MEDS ORDERED: propofoL 200 MG/20 ML VIAL IV ONE ×2 (06:59→08:04)
[2024-01-09] MEDS: NA CHLORIDE 0.9% 500 ML ONE (07:15)
[2024-01-09] MEDS ORDERED: EPINEPHRINE 1 MG/ML VIAL ONE (08:39)
--- NOTE | 2024-01-09 10:13 | CON ---
Date of Consultation: 01/09/2024 Reason For Consultation: Iron-deficiency anemia. History Of Present Illness: Patient is a 73-year-old male with history of diabetes, hyperte nsion, diabetic neuropathy, diverticulosis, benign prostatic hypertrophy, hypertension, hyperlipidemi a, cholecystectomy, bilateral cataract surgery. Patient presented to the hospital feeling weak and t ired, shortness of breath. Says he has black stools sometimes, but he has been on iron supplements f or his iron deficiency anemia. Went to primary care physician for further evaluation of his weakness and shortness of breath, found to have a hemoglobin of 6.8 as an outpatient. Patient came to the [facility]. Repeat hemoglobin here was 6.4. The patient denies any hematemesis, coffee-grounds emesis, epistaxis, hematuria, dysuria, polydipsia, melena, hematochezia, though he does have black stools, wh ich he attributes to his iron therapy. He says when he stops the iron, his stools become normal brow n. When he takes iron, they become black. Past Medical History: Significant for hypertension, hyperlipidemia, diabetes, diabetic peripheral ne uropathy, diverticulosis, benign prostatic hypertrophy, laparoscopic cholecystectomy, cataract surger ies bilaterally. Medications At Home: See list. Allergies: NKDA. Social History: , 2 children. No tobacco. Occasional alcohol. Family History: Father of myocardial infarction. Mother of old age at age 89. Brother di ed of stomach cancer. Review of Systems: Patient has black stools whenever he takes his iron. If he stops taking iron, his stools turn brown, normal color. He denies any melena, hematochezia, hematemesis, coffee-grounds emesis, epistaxis, he moptysis, hematuria, dysuria, polydipsia, chest pain, shortness of breath, seizure, syncope, muscle a ches, joint aches, back pains. No depression or anxiety. Physical Examination: Vital Signs: Patient is 5 feet 10 inches, 171 pounds, BMI of 24.5 kg/sq m. General: This is an elderly male lying in bed, in no acute distress. HEENT: Normocephalic, atraumatic. Anicteric. Pupils equal, round, and reactive to light. Extraocu lar movements intact. Oropharynx is clear. Neck: Supple. No masses. Respirations: Clear to auscultation bilaterally. Cardiac: Regular rate and rhythm. No gallops. Abdomen: Positive bowel sounds. Soft, nontender, nondistended. No hepatosplenomegaly. No peritone al or Bermudez sign. Extremities: No clubbing, cyanosis, or edema. 2+ pulses. Neuro: Alert and oriented x3. Grossly nonfocal. 5/5 motor sensation to light touch. Data: Outpatient hemoglobin 6.8, hemoglobin here at the hospital from yesterday at 7:16 was 6.4; hem atocrit 20.3. Glucose of about 194 yesterday, 147 today. Urinalysis was negative for 1+ glucose. Impression: 1.Iron-deficiency anemia. Hemoglobin 6.4. Prior EGD, colonoscopy in 2019 with diverticulosis noted at that time, internal hemorrhoids. We will need to further investigate EGD and colonoscopy. 2.History of diabetes, hypertension, diabetic peripheral neuropathy, hyperlipidemia, diverticulosis, benign prostatic hypertrophy, laparoscopic cholecystectomy and bilateral cataract surgery. Recommendations: 1.Agree with packed RBCs transfusion now, which has been done. 2.Serial H and H, and transfuse p.r.n. 3.IV fluids. 4.Keep patient n.p.o. 5.Urgent EGD. 6.PPI. 7.Colonoscopy. AMMON/PATRICK Voice ID: [id number] Report ID: [id number]
[2024-01-09 11:54] LABS: Hematocrit 29.7 % (39.6-49.0)
[2024-01-09 12:30] VITALS: O2SAT 98
--- NOTE | 2024-01-09 13:17 | RAD REPORT ---
EXAM DESCRIPTION: CT - Abdomen Pelvis Wo Contrast - 01/09/2024 1:04 pm CLINICAL HISTORY: Abdominal pain. anemia COMPARISON: Abdomen Pelvis Wo Contrast dated 03/22/2021 TECHNIQUE: CT imaging of the abdomen and pelvis was performed without contrast. Solid organ and vasc ular assessment is limited due to lack of IV contrast. All CT scans are performed using dose optimization technique as appropriate and may include automated exposure control or mA/KV adjustment according to patient size. FINDINGS: The lower lung lobato are clear.There is a metallic structure along the body of the stomac h present which is nonspecific. Cholecystectomy clips. The liver, spleen, pancreas, adrenal glands and kidneys are within normal limits for a limited non-co ntrast examination.27 mm right renal cyst, benign in appearance. No bowel obstruction, free air, free fluid or abscess. Mild sigmoid diverticulosis coli without diver ticulitis. The appendix is normal. The osseous structures are within normal limits. IMPRESSION: No acute intra-abdominal or pelvic findings. Mild sigmoid diverticulosis coli without diverticulitis. Nonspecific 1-2 cm metallic appearing structure in the stomach. A limited non-contrast examination was performed as detailed.
--- NOTE | 2024-01-09 13:19 | RAD REPORT ---
EXAM DESCRIPTION: RAD - Chest Pa And Lat (2 Views) - 01/09/2024 1:10 pm CLINICAL HISTORY: anemia Chest pain. TECHNIQUE: PA and lateral views of the chest were obtained. FINDINGS: The lungs are hyperexpanded compatible with COPD. The heart is upper limit of normal in si ze. No fracture or aggressive bony process. IMPRESSION: COPD without acute process identified. The USPSTF recommends annual screening for lung cancer with low-dose CT (LDCT) in adults aged 50 to 80 years who have a 20 pack-year smoking history and currently smoke or have quit within the past 15 years.
[2024-01-09 16:36] VITALS: BP 143/74; TEMP 97.7
--- NOTE | 2024-01-09 22:45 | DS ---
Date of Discharge: 01/09/2024 Disposition: Discharged to go home. Physical Examination: HEENT: Unremarkable. Lungs: Clear to auscultation. Heart: Sounds normal. Abdomen: Soft. Bowel sounds normal. No guarding, rigidity, tenderness, distention. Extremities: No leg edema. Laboratory Data: Upon admission, hemoglobin was 6.4. After 3 units of PRBC blood transfusion today, hemoglobin came up to 9.7. Chest x-ray, no acute cardiopulmonary changes, evidence of COPD. CAT sc an of the abdomen and pelvis shows 3 cm right renal cyst and pediculosis. 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 García. Final Diagnoses: 1.Anemia. 2.Hypertension. 3.Hyperlipidemia. 4.Type 2 diabetes mellitus. 5.Mixed hyperlipidemia. 6.Benign prostatic hypertrophy. 7.Diabetes mellitus with diabetic neuropathy. 8.Insomnia. Discharge Medications And Instructions: 1.Continue all prior home medication except stop aspirin and the patient was instructed not to take any nonsteroidal anti-inflammatory medications. 2.Follow up at my office next week and the patient to come by for CBC, [facility] 3.Follow with Dr. García tomorrow and he will have an outpatient colonoscopy tomorrow with Dr. Sofy winkler. Hospital Course: Mr. Stover is a 73-year-old pleasant male patient admitted to the hospital with misty re anemia problem. Please see dictated H and P for more information. After the patient was evaluate d, he was admitted to the hospital and 3 units of PRBC blood transfusion was given. Dr. García from GI was consulted, who did EGD today on him and discussed EGD findings with me. After EGD, his condit ion was medically stable. We also did a chest x-ray, CAT scan of abdomen, and results reviewed. Thi s evening, I went back to hospital, talked to him about all these findings and the patient is medical ly stable for discharge and Dr. García is planning to do outpatient colonoscopy tomorrow. OSWALDO/MODL Voice ID: [id number] Report ID: [id number]
== END 2024-01-09 19:25 | disposition home or self-care (01) | DRG 395 ==
LOC: 2ND 17:24
PROVIDERS: ADMIT Internal Medicine; ATTEND Internal Medicine
PROC: 30233N1 Transfusion of Nonautologous Red Blood Cells into Peripheral Vein, Percutaneous Approach (ICD-10-PCS; 2024-01-08)
PROC: 0DB68ZZ Excision of Stomach, Via Natural or Artificial Opening Endoscopic (ICD-10-PCS; 2024-01-08)
PROC: 0W3P8ZZ Control Bleeding in Gastrointestinal Tract, Via Natural or Artificial Opening Endoscopic (ICD-10-PCS; principal; 2024-01-09 07:30)
DX: K31.7 Polyp of stomach and duodenum (principal); I10 Essential (primary) hypertension; E78.2 Mixed hyperlipidemia; G47.00 Insomnia, unspecified; D50.9 Iron deficiency anemia, unspecified; J30.9 Allergic rhinitis, unspecified; E11.42 Type 2 diabetes mellitus with diabetic polyneuropathy; N40.0 Benign prostatic hyperplasia without lower urinary tract symptoms; K57.90 Diverticulosis of intestine, part unspecified, without perforation or abscess without bleeding; Z88.1 Allergy status to other antibiotic agents; Z79.84 Long term (current) use of oral hypoglycemic drugs; Z79.82 Long term (current) use of aspirin; Z90.49 Acquired absence of other specified parts of digestive tract; Z79.899 Other long term (current) drug therapy
CPT/HCPCS: 36415; 36430; 71046; 74176; 81003; 82947; 85014; 85018; 86850; 86900; 86901; 86920; 88304; 88305; J0171; J2001; J2371; J2704; J7040; P9016